=== PATIENT | female | born 1980 | race African-American/Black ===

== ENCOUNTER 2023-05-13 00:04 | Emergency (ER) | payer OTHER ==
[~2023-05-13] VITALS: Ht 170.2 cm; Wt 81.8 kg
[~2023-05-13 00:04] MED LIST: LEVO750T68 PO
[2023-05-13 00:18] VITALS: TEMP 97
[2023-05-13 02:01] LABS: APPEARANCE,URINE HAZY (CLEAR); BILIRUBIN,URINE NEGATIVE (NEGATIVE); COLOR,URINE LIGHT ORANGE (YELLOW); GLUCOSE, URINE (UA) NEGATIVE (NEGATIVE); KETONES,URINE NEGATIVE (NEGATIVE); LEUKOCYTE ESTERASE ,URINE LARGE (NEGATIVE); NITRATE,URINE NEGATIVE (NEGATIVE); OCCULT BLOOD,URINE LARGE (NEGATIVE); PH,URINE 7.5 (5.0-8.0); PROTEIN,URINE 30-70 mg/dL (NEGATIVE); SPECIFIC GRAVITIY, URINE 1.022 (1.003-1.030); UROBILINOGEN,URINE <=1.0 mg/dL (<=1.0)
[2023-05-13 02:13] LABS: BACTERIA,URINE Few /HPF (None Seen)
[2023-05-13 02:14] LABS: SQUAMOUS EPITHELIAL CELL,UR Few /LPF (None Seen)
[2023-05-13 03:03] VITALS: BP 109/72; PULSE 98; RESP 16
[2023-05-13] MEDS ORDERED: CEPH-558 PO (03:03)
[2023-05-13] MEDS ORDERED: PHEN-674 PO (03:03)
[2023-05-13] MEDS: LIDOCAINE/PF 1% 2 ML VIAL IM ONE (03:37)
[2023-05-13] MEDS: CefTRIAXone SODIUM 1 GM/VIAL IM ONE (03:37)
[2023-05-13] MEDS: PHENAZOPYRIDINE HCL 100 MG TABLET PO ONE (03:37)
== END 2023-05-13 04:18 | disposition home or self-care (01) ==
LOC: EMS 00:05
DX: N39.0 Urinary tract infection, site not specified (principal)
CPT/HCPCS: 99283; 81001; 87086; 87186; 51701; 96372; J0696; J3490; 51702